=== PATIENT | female | born 1975 | race Caucasian/White ===

== ENCOUNTER 2019-12-05 09:30 | Outpatient (CLI) | payer OTHER ==
[~2019-12-05 09:30] MED LIST: ZYRTEC10 M3 PO
== END 2019-12-05 10:45 | disposition home or self-care (01) ==
LOC: MAMO-SONO 09:30
PROVIDERS: ATTEND Obstetrics & Gynecology
DX: Z12.31 Encounter for screening mammogram for malignant neoplasm of breast (principal); N60.21 Fibroadenosis of right breast; N60.22 Fibroadenosis of left breast

== ENCOUNTER 2019-12-05 11:15 | Outpatient (CLI) | payer OTHER | END 2019-12-05 11:24 | disposition home or self-care (01) | LOC: LAB 11:15 | PROVIDERS: ATTEND Obstetrics & Gynecology | DX: D60.8 Other acquired pure red cell aplasias (principal); N39.0 Urinary tract infection, site not specified; I11.9 Hypertensive heart disease without heart failure; E78.3 Hyperchylomicronemia; E07.89 Other specified disorders of thyroid; E55.9 Vitamin D deficiency, unspecified; E11.9 Type 2 diabetes mellitus without complications; N95.1 Menopausal and female climacteric states; L68.0 Hirsutism ==

== ENCOUNTER 2020-10-16 09:04 | Outpatient (CLI) | payer OTHER | END 2020-10-16 09:10 | disposition home or self-care (01) | LOC: LAB 09:04 | PROVIDERS: ATTEND Obstetrics & Gynecology | DX: D64.9 Anemia, unspecified (principal); N39.0 Urinary tract infection, site not specified; E11.9 Type 2 diabetes mellitus without complications; E03.9 Hypothyroidism, unspecified; E55.9 Vitamin D deficiency, unspecified ==

== ENCOUNTER 2020-10-16 09:16 | Outpatient (CLI) | payer OTHER | END 2020-10-16 09:30 | disposition home or self-care (01) | LOC: MAMO-SONO 09:16 | PROVIDERS: ATTEND Obstetrics & Gynecology | DX: N60.12 Diffuse cystic mastopathy of left breast (principal); N60.11 Diffuse cystic mastopathy of right breast; Z12.31 Encounter for screening mammogram for malignant neoplasm of breast; N64.4 Mastodynia ==

== ENCOUNTER 2021-03-25 09:00 | Outpatient (CLI) | payer OTHER | END 2021-03-25 09:30 | disposition home or self-care (01) | LOC: PPH VACUNA 09:00 | PROVIDERS: ATTEND Emergency Medicine Pediatric Emergency Medicine | DX: Z23 Encounter for immunization (principal) ==

== ENCOUNTER 2022-02-18 08:40 | Emergency (ER) | payer OTHER ==
[~2022-02-18] VITALS: Ht 157.5 cm; Wt 54.0 kg
== END 2022-02-18 10:29 | disposition home or self-care (01) ==
LOC: ER 08:40
DX: F43.0 Acute stress reaction (principal); J45.909 Unspecified asthma, uncomplicated; Z88.6 Allergy status to analgesic agent

== ENCOUNTER 2022-11-10 12:12 | Outpatient (CLI) | payer OTHER | END 2022-11-10 12:18 | disposition home or self-care (01) | LOC: MAMO-SONO 12:12 | PROVIDERS: ATTEND Obstetrics & Gynecology | DX: Z12.31 Encounter for screening mammogram for malignant neoplasm of breast (principal); N60.21 Fibroadenosis of right breast; N60.22 Fibroadenosis of left breast ==

== ENCOUNTER 2023-11-28 08:47 | Outpatient (CLI) | payer OTHER | END 2023-11-28 08:59 | disposition home or self-care (01) | LOC: MAMO-SONO 08:47 | PROVIDERS: ATTEND Obstetrics & Gynecology | DX: N60.21 Fibroadenosis of right breast (principal); N60.22 Fibroadenosis of left breast ==

== ENCOUNTER → 2024-04-26 | Outpatient (CLI) | payer OTHER | END | disposition home or self-care (01) | LOC: SONOGRAMA 08:41 | PROVIDERS: ATTEND Obstetrics & Gynecology | DX: N60.21 Fibroadenosis of right breast (principal); N60.22 Fibroadenosis of left breast ==